=== PATIENT | male | born 1955 | race Caucasian/White ===

== ENCOUNTER 2017-04-03 06:43 | Day surgery (SDC) | payer BC ==
[2017-04-03] MEDS ORDERED: fentaNYL 100 MCG/2 ML SDV ONE (06:58)
[2017-04-03] MEDS ORDERED: Propofol 200 MG/20 ML SDV ONE (06:58)
[2017-04-03] MEDS ORDERED: Midazolam 1 MG/ML 2 ML SDV ONE (06:58)
[2017-04-03] MEDS ORDERED: Lactated Ringers 1,000 ML IV SCH ×2 (07:43→09:00)
--- NOTE | 2017-04-03 14:25 | OR ---
DATE OF PROCEDURE: 04/03/2017 PREOPERATIVE DIAGNOSIS: History of tubular adenoma. POSTOPERATIVE DIAGNOSES: 1. Diverticulosis. 2. Small colon polyp, 15 cm from the anal verge. 3. History of tubular adenoma. PROCEDURE PERFORMED: Colonoscopy to the cecum with biopsy resection of small polyp, 15 cm from the anal verge. SURGEON: Darnell Marcelo MD. ANESTHESIA: IV anesthesia with monitored anesthesia care. INDICATION: This 61-year-old white male is referred for a colonoscopy. He has a history of a tubular adenoma removed 3 years ago at 25 cm from the anal verge. This was a pedunculated polyp. I counseled him for a followup colonoscopy including the risks and alternatives, and he gave his informed consent to proceed. DESCRIPTION OF PROCEDURE: The patient was placed in the left lateral decubitus position. IV anesthesia was administered by the Anesthesia Service. Time-out was held. A rectal exam was performed, which was unremarkable. The flexible video Olympus colonoscope was introduced through his anus, up his rectum, and out his colon all way to the cecum. Once the cecum was reached, the scope was slowly withdrawn, examining the mucosa throughout. We saw a few scattered left-sided diverticula. At 15 cm from the anal verge we saw a small polyp, which was removed with several bites of the biopsy forceps. The scope was retroflexed in the rectum with the distal rectum appearing unremarkable. The scope was straightened and removed. He tolerated the procedure well. Darnell Marcelo MD /[id number]
== END 2017-04-03 10:00 | disposition home or self-care (01) ==
LOC: JP.SDS 06:43
PROVIDERS: ATTEND Surgery
DX: Z12.11 Encounter for screening for malignant neoplasm of colon (principal); D12.6 Benign neoplasm of colon, unspecified; K63.5 Polyp of colon; K57.30 Diverticulosis of large intestine without perforation or abscess without bleeding; E11.9 Type 2 diabetes mellitus without complications; Z85.038 Personal history of other malignant neoplasm of large intestine
CPT/HCPCS: 45380; 88305; J2250; J2704; J3010; J7120

== ENCOUNTER 2020-12-28 08:17 | Day surgery (SDC) | payer BC ==
[2020-12-28] MEDS ORDERED: Sodium Chloride 0.9% 1,000 ML IV SCH (09:30)
[2020-12-28] MEDS ORDERED: Propofol 200 MG/20 ML SDV ONE (09:32)
[2020-12-28] MEDS ORDERED: fentaNYL 100 MCG/2 ML SDV ONE (09:32)
[2020-12-28] MEDS ORDERED: Midazolam 1 MG/ML 2 ML SDV ONE (09:32)
--- NOTE | 2020-12-29 04:56 | OR ---
DATE OF PROCEDURE: 12/28/2020 SURGEON: Ismael Nicole MD PROCEDURE: Colonoscopy. FINDINGS: Sigmoid colon polyp, approximately 5 mm, completely removed using hot snare wire device. COMPLICATION: None. MECHANICAL SERVICE SPECIALIST: None. ANESTHESIA: MAC. RISKS: Risks, benefits, alternatives, limitations including, but not limited to infection, bleeding, perforation, false positives and false negatives were explained to the patient and he wished to proceed. PROCEDURE IN DETAIL: The patient was placed in left lateral decubitus position. Digital rectal exam was performed without abnormality. Scope was introduced and advanced atraumatically to the ileocecal valve. A photo was taken of this. Scope was brought back to the ascending, transverse, descending colon, and retroflexed. No evidence of old or new blood. No masses. The aforementioned polyp was identified and completely removed. No abnormalities on retroflexion. Greater than 8 minutes was spent removing the scope. The prep was acceptable, approximately 90% of the luminal surface could be seen. The patient tolerated the procedure well. Ismael Nicole MD /[id number]
== END 2020-12-28 11:57 | disposition home or self-care (01) ==
LOC: JP.SDS 08:17
PROVIDERS: ATTEND Surgery
DX: Z12.11 Encounter for screening for malignant neoplasm of colon (principal); D12.5 Benign neoplasm of sigmoid colon
CPT/HCPCS: 45385; J2250; J2704; J3010; J7030; 88305